=== PATIENT | female | born 1990 | race Caucasian/White ===

== ENCOUNTER 2017-04-15 17:50 | Emergency (ER) | payer OTHER ==
[~2017-04-15] VITALS: Ht 157.5 cm; Wt 123.2 kg
[2017-04-15 17:50] VITALS: BP 136/77
[2017-04-15] MEDS ORDERED: NS 1,000 ML IV ONE (19:15)
[2017-04-15 19:47] LABS: BASO % 0.3 % (0.0-1.0); EOS # 0.2 K/mm3 (0.0-0.50); EOS % 1.9 % (0.0-3.0); LARGE UNSTAINED CELL # 0.1 K/mm3 (0.0-0.4); LARGE UNSTAINED CELL % 1.3 % (0.0-4.0); LYMPH % 31.4 % (24.0-44.0); MEAN CORPUSCULAR HEMOGLOBIN 29.5 pg (27.0-33.0); MEAN CORPUSCULAR HGB CONC 34.3 g/dl (32.0-36.5); MEAN CORPUSCULAR VOLUME 85.8 fl (80.0-96.0); MONO # 0.4 K/mm3 (0.0-0.8); MONO % 3.7 % (0.0-5.0); NEUTROPHILS # 5.9 K/mm3 (1.8-7.7); NEUTROPHILS % 61.4 % (36.0-66.0); PLATELET COUNT, AUTOMATED 261 k/mm3 (150-450); RED CELL DISTRIBUTION WIDTH 13.2 % (11.5-14.5); WHITE BLOOD COUNT 9.6 K/mm3 (4.0-10.0)
--- NOTE | 2017-04-15 21:50 | REPUSA ---
CLINICAL HISTORY: , vaginal bleeding COMPARISON: No study for comparison is available at the time of interpretation. TECHNIQUE: Pelvic ultrasound, transabdominal and endovaginal. Endovaginal exam was performed for eval uation of the gestational sac. Uterus: Normal without masses. Intrauterine gestation sac: Live IUP at 6 weeks, 6 days by crown rump length with heart rate 131 bpm. Ovaries: Normal size. Right corpus luteum. Pelvic fluid: None. IMPRESSION: Live IUP at 6 weeks, 6 days. Estimated due date December 03, 2017.
[2017-04-15] MEDS ORDERED: PREN29CH PO (21:58)
== END 2017-04-15 22:18 | disposition home or self-care (01) ==
LOC: M ED 17:50
DX: O20.9 Hemorrhage in early pregnancy, unspecified (principal); Z87.891 Personal history of nicotine dependence; Z88.1 Allergy status to other antibiotic agents; Z3A.01 Less than 8 weeks gestation of pregnancy

== ENCOUNTER 2017-04-28 12:43 | Emergency (ER) | payer OTHER ==
[~2017-04-28] VITALS: Ht 170.2 cm; Wt 120.4 kg
[2017-04-28 12:43] VITALS: BP 129/74
[~2017-04-28 12:43] MED LIST: PREN29CH PO
--- NOTE | 2017-04-28 17:52 | REP ---
Obstetric sonography: History: Pelvic pain. 8-weeks 5 days by prior sonography. Findings: Transabdominal scanning confirms the presence of a viable single intrauterine gestation. The crown-rump length of the embryonic pole is 17 mm. This corresponds with a gestational age estimate of 8 weeks 1 day. heart rate is recorded at 169 beats per minute. There is a 2.4 cm cyst in the maternal left ovary consistent with corpus luteum. No subchorionic hemorrhage is seen. Impression: Viable single intrauterine gestation at 8 weeks 1 day by today's crown-rump length. Expected gestational age estimate based on prior sonography is 8 weeks 5 days. CHI by prior sonography December 03, 2017. No complication is identified. Signed by Mahad Arreguin MD 04/28/2017 06:40 P
== END 2017-04-28 18:17 | disposition home or self-care (01) ==
LOC: M ED 12:43
DX: O26.891 Other specified pregnancy related conditions, first trimester (principal); O34.81 Maternal care for other abnormalities of pelvic organs, first trimester; Z87.891 Personal history of nicotine dependence; Z3A.08 8 weeks gestation of pregnancy; Z79.899 Other long term (current) drug therapy; Z88.1 Allergy status to other antibiotic agents

== ENCOUNTER → 2017-05-14 | Outpatient (CLI) | payer OTHER ==
[2017-05-14 19:24] LABS: T UPTAKE 30 % (30-39); THYROXINE (T4) 13.7 UG/DL (4.5-12.0)
[2017-05-14 20:16] LABS: BASO % 0.3 % (0.0-1.0); EOS # 0.1 K/mm3 (0.0-0.50); EOS % 1.1 % (0.0-3.0); LARGE UNSTAINED CELL # 0.1 K/mm3 (0.0-0.4); LARGE UNSTAINED CELL % 1.4 % (0.0-4.0); LYMPH # 2.1 K/mm3 (1.5-6.5); LYMPH % 27.5 % (24.0-44.0); MEAN CORPUSCULAR HEMOGLOBIN 30.4 pg (27.0-33.0); MEAN CORPUSCULAR HGB CONC 35.4 g/dl (32.0-36.5); MONO # 0.3 K/mm3 (0.0-0.8); MONO % 3.7 % (0.0-5.0); NEUTROPHILS # 4.9 K/mm3 (1.8-7.7); PLATELET COUNT, AUTOMATED 248 k/mm3 (150-450); RED CELL DISTRIBUTION WIDTH 12.9 % (11.5-14.5); WHITE BLOOD COUNT 7.5 K/mm3 (4.0-10.0)
[2017-05-16 12:50] LABS: HBsAg Prenatal NEGATIVE (NEGATIVE)
== END ==
LOC: M SMT 11:18
PROVIDERS: ATTEND Obstetrics & Gynecology
DX: Z34.01 Encounter for supervision of normal first pregnancy, first trimester (principal); Z36 Encounter for antenatal screening of mother

== ENCOUNTER → 2017-06-13 | Outpatient (CLI) | payer OTHER | LOC: M SMT 10:50 | PROVIDERS: ATTEND Advanced Practice Midwife | DX: Z34.81 Encounter for supervision of other normal pregnancy, first trimester (principal); Z36.8A Encounter for antenatal screening for other genetic defects ==